=== PATIENT | male | born 1985 | race Caucasian/White ===

== ENCOUNTER 2017-01-23 03:14 | Emergency (ER) | payer OTHER ==
[~2017-01-23] VITALS: Ht 188 cm; Wt 66.5 kg
[2017-01-23 03:18] VITALS: BP 143/91; PULSE 122; RESP 16; TEMP 98.3; O2SAT 97
[2017-01-23] MEDS ORDERED: TETANUS/DIPHTHERIA TOXOID ADULT 0.5 ML VIAL IM ONE (03:30)
[2017-01-23] MEDS ORDERED: LIDOCAINE HCL 1% PF 30 ML VIAL INFIL ONE (03:30)
[2017-01-23 03:35] VITALS: BP 143/91; PULSE 122; RESP 16; TEMP 98.3; O2SAT 97
--- NOTE | 2017-01-23 04:04 | PD ---
HPI Chief Complaint: Laceration/Skin Injury Time Seen by Provider: 03:25 Travel History International Travel<30 days: No Contact w/Intl Traveler<30days: No Traveled to known affect area: No History of Present Illness HPI 32-year-old male presents to the emergency department for evaluation of laceration to his left wrist. Patient states injury occurred when he fell and dropped a bottle and landed on the bottle. Patient states initially went to [facility] but was not seen therefore came here to be evaluated. Tetanus status is not current. Patient denies any hand numbness tingling or weakness. Patient denies any paresthesias. Patient denies other injury. Patient rates his pain at the laceration site 1/10 in intensity. Patient admits to drinking alcohol. [facility] Past Medical History Narrative Medical Oral surgery; tobacco use alcohol use; nursing notes reviewed Medical History: Denies Significant Hx Tetanus Vaccination: Unknown Influenza Vaccination: No Past Surgical History Other Surgery: Yes (ORAL) Social History Alcohol Use: Yes (1 12 PACK PER 3 DAYS) Tobacco Use: Yes (1/2 PPD) Substance Use: No Allergies-Medications (Allergen,Severity, Reaction): Coded Allergies: No Known Allergies (Verified Allergy, Unknown, 01/23/17) Reported Meds & Prescriptions Reported Meds & Active Scripts Active No Active Prescriptions or Reported Medications Review of Systems Except as stated in HPI: all other systems reviewed are Neg Eyes: No: Visual changes HENT: No: Headaches, Neck Pain Respiratory: No: Pleuritic Pain Gastrointestinal: No: Abdominal Pain Genitourinary: No: Flank Pain Musculoskeletal: Positive: Pain (left wrist at laceration site) Skin: Positive Other (laceration) Neurologic: No: Weakness Psychiatric: No: Anxiety Hematologic/Lymphatic: No: Lymph Node Enlargement Physical Exam Narrative GENERAL: Well-developed well-nourished male in no acute distress no respiratory distress SKIN: Warm and dry. HEAD: Normocephalic. EYES: No scleral icterus. No injection or drainage. NECK: Supple, trachea midline. No JVD or lymphadenopathy. CARDIOVASCULAR: Regular rate and rhythm without murmurs, gallops, or rubs. RESPIRATORY: Breath sounds equal bilaterally. No accessory muscle use. GASTROINTESTINAL: Abdomen soft, non-tender, nondistended. MUSCULOSKELETAL: No cyanosis, or edema. Attention left wrist radial aspect 5 cm superficial laceration without evidence of neurovascular or tendon involvement. Capillary refill brisk and less than 2 seconds per digit thumb apposition intact radial pulse 2+ to palpation on her pulse 2+ to palpation intact wrist flexion and extension. BACK: Nontender without obvious deformity. No CVA tenderness. Data Data Last Documented VS Vital Signs Date Time Temp Pulse Resp B/P (MAP) Pulse Ox O2 Delivery O2 Flow Rate FiO2 01/23/17 03:35 98.3 122 16 143/91 (108) 97 Orders Orders Tetanus/Diphtheria Tox Adult (Tetanus/Di (01/23/17 03:30) Lidocaine Pf 1% Inj (Xylocaine-Mpf 1% In (01/23/17 03:30) MDM Medical Decision Making Medical Screen Exam Complete: Yes Emergency Medical Condition: Yes Medical Record Reviewed: Yes Differential Diagnosis Laceration tendon injury, neurovascular injury, retained foreign body Narrative Course Laceration repair required please refer to laceration/procedure note Tetanus status updated Bulky pulse Dressing applied Procedures Procedure Narrative LACERATION LOCATION: Left wrist LENGTH: 5 cm NUMBER OF STITCHES/MARILIN: 11 REPAIR: The area of the laceration was prepped with Betadine and sterilely draped. The laceration was infiltrated with 1% lidocaine plain. The wound was copiously irrigated and explored without evidence of foreign body, tendon injury or neurovascular injury. The wound was closed using 5-0 Prolene. This was a single layer repair. A sterile dressing was applied. The patient was advised to keep the dressing clean and dry. Patient tolerated the procedure well. Tetanus status updated. Diagnosis Primary Impression: Laceration of left wrist Referrals: Primary Care Physician 2 days Patient Instructions: General Instructions Additional Instructions: Wound check at 2 days suture removal at 7010 days Clean site clean and dry and change dressing daily Follow wound care instructions Return to the emergency department for redness swelling drainage fever or any concerns May take acetaminophen and/or ibuprofen per package instructions as needed for pain Scripts No Active Prescriptions or Reported Meds Disposition: 01 DISCHARGE HOME Condition: Stable Jennifer Valero MD Jan 23, 2017 04:04
== END 2017-01-23 04:28 | disposition home or self-care (01) ==
LOC: PHED 03:14
DX: S61.512A Laceration without foreign body of left wrist, initial encounter (principal); W19.XXXA Unspecified fall, initial encounter; Z23 Encounter for immunization
CPT/HCPCS: 12002; 90471; 90714

== ENCOUNTER 2017-01-25 12:27 | Emergency (ER) | payer OTHER ==
[~2017-01-25] VITALS: Ht 188 cm; Wt 66.7 kg
[2017-01-25 12:34] VITALS: BP 134/62; PULSE 82; RESP 16; TEMP 98; O2SAT 100
[2017-01-25] MEDS ORDERED: CEPH-460 PO (14:11)
--- NOTE | 2017-01-25 14:13 | PD ---
HPI Chief Complaint: Laceration/Skin Injury Time Seen by Provider: 13:15 Travel History International Travel<30 days: No Contact w/Intl Traveler<30days: No Traveled to known affect area: No History of Present Illness HPI 32-year-old male here for evaluation of left wrist laceration. Patient was seen on 01/22/17 where he had laceration repair to left wrist. He reports mild increased pain and redness at the site. He denies fever or chills. He denies drainage from the site. And an severity is mild. No alleviating factors. PFSH Past Medical History Medical History: Denies Significant Hx Influenza Vaccination: No Past Surgical History Other Surgery: Yes (ORAL) Social History Alcohol Use: Yes (1 12 PACK PER 3 DAYS) Tobacco Use: Yes (1/2 PPD) Substance Use: No Allergies-Medications (Allergen,Severity, Reaction): Coded Allergies: No Known Allergies (Verified Allergy, Unknown, 01/25/17) Reported Meds & Prescriptions Reported Meds & Active Scripts Active No Active Prescriptions or Reported Medications Review of Systems Except as stated in HPI: all other systems reviewed are Neg General / Constitutional: No: Fever Physical Exam Narrative GENERAL: Well-nourished, well-developed patient. SKIN: Focused skin assessment warm/dry. Healing wound to the left wrist with mild erythema. No induration or fluctuance. No drainage from the site. No surrounding cellulitis or lymphangitis. HEAD: Normocephalic. EYES: No scleral icterus. No injection or drainage. NECK: Supple, trachea midline. No JVD or lymphadenopathy. MUSCULOSKELETAL: No cyanosis, or edema. Data Data Last Documented VS Vital Signs Date Time Temp Pulse Resp B/P (MAP) Pulse Ox O2 Delivery O2 Flow Rate FiO2 01/25/17 12:34 98.0 82 16 134/62 (86) 100 MDM Medical Decision Making Medical Screen Exam Complete: Yes Emergency Medical Condition: Yes Differential Diagnosis Laceration, wound recheck, wound infection, cellulitis, abscess Narrative Course 32-year-old male here for evaluation of left wrist laceration. Patient was seen on 01/22/17 where he had laceration repair to left wrist. He reports mild increased pain and redness at the site. On exam he appears to have a mild wound infection. No evidence of cellulitis or abscess formation. Patient will be given prescription for Keflex and instructed follow-up with the PCP Diagnosis Primary Impression: Wound infection Referrals: [facility] Additional Instructions: Take the antibiotics as prescribed. Cleansed the area daily with soap and water. Return to emergency department if he developed new or worsening symptoms. Scripts Cephalexin (Keflex) 500 Mg Cap 500 MG PO Q6H for Infection, #28 CAP 0 Refills Prov: Nery Callahan 01/25/17 Disposition: 01 DISCHARGE HOME Condition: Stable Nery Callahan Jan 25, 2017 14:13
== END 2017-01-25 14:42 | disposition home or self-care (01) ==
LOC: PHED 12:27 → PHEFT 14:42
DX: L08.9 Local infection of the skin and subcutaneous tissue, unspecified (principal)
CPT/HCPCS: 99281